=== PATIENT | female | born 1985 | race Caucasian/White ===

== ENCOUNTER 2016-06-27 13:09 | Emergency (ER) | payer MEDICAID ==
[2016-06-27 13:20] VITALS: RESP 16
[2016-06-27 14:17] LABS: COLOR YELLOW; LEUKOCYTE ESTERASE,URINE NEGATIVE (NEGATIVE); NITRITE,URINE NEGATIVE (NEGATIVE); PH,URINE 7.5 (5.0-7.5)
--- NOTE | 2016-06-27 15:09 | UCPHY ---
H & P Time Seen by Provider: 06/27/16 14:57 Patient Type: New HPI/ROS: CHIEF COMPLAINT: Left lower quadrant pain HISTORY OF PRESENT ILLNESS: The patient is a 31 year old female presenting with left lower quadrant pain that has been worsening over the past 3 days. Her pain is moderate to severe. She reports increased pain with moving and standing. The patient was sexually active 2 months ago, not since. She took a test 4 weeks ago that was negative. She had her menstrual cycle 3 weeks ago, but her period has been short for her, it lasted for 3 days instead of 5 days, though at the expected time. She has no associated vomiting or diarrhea. A few days ago the patient felt lightheaded as though she were going to faint, not since, and not with a surge in pain. She denies vaginal discharge. No fever or chest pain. Remoted hx of Chlayydia and Gr I cervical CA, no abd surgery. REVIEW OF SYSTEMS: Constitutional: No fever, no chills. Eyes: No discharge. Respiratory: No cough, shortness of breath, or wheezing. Gastrointestinal: See above. No vaginal bleeding. No shoulder pain Genitourinary: No hematuria or frequency. Past Medical/Surgical History: G10.P6.A3. D&C- 5 years ago. Chlamydia, Cervical cancer Social History: Current everyday smoker. Smoking Status: Current every day smoker Physical Exam: General Appearance: Alert, no distress. Afebrile. Normal phonation. No respiratory distress. Eyes: Pupils equal and round no pallor or injection. No icterus Respiratory: There are no retractions, no duyllnbess Cardiovascular: Regular rate and rhythm, non tachy. Abdomen: Soft, tender to the LLQ. No R or G. Neurological: Ox3. No motor weakness. Sensation intact. Gait nl. Skin: Warm and dry, no rashes. Psychiatric: Normal affect. Constitutional: Initial Vital Signs Temperature (C) 37.1 C 06/27/16 13:15 Heart Rate 69 06/27/16 13:15 Respiratory Rate 16 06/27/16 13:15 Blood Pressure 136/87 H 06/27/16 13:15 O2 Sat (%) 99 06/27/16 13:15 O2 Delivery Mode Room Air Allergies/Adverse Reactions: No Known Allergies Allergy (Unverified 06/27/16 13:20) Home Medications: Medication Instructions Recorded NK [No Known Home Meds] 06/27/16 Medical Decision Making ED Course/Re-evaluation: Urine test is positive. She is [id number] I discussed findings with the patient. I offered transportation via ambulance, she would like to drive herself. I discussed the dangers of tubal , patient understands and declines an ambulance. 3:25 p.m.: I spoke to Dr. Taylor at [facility] ED, he is aware of the patient and expecting her for an US to rule out ectopic . The patient will drive in a private vehicle to the emergency department. Departure - Departure Disposition: Home, Routine, Self-Care Clinical Impression: , Gestation Unknonw Abdominal pain Qualifiers: Abdominal location: left lower quadrant Qualified Code(s): R10.32 - Left lower quadrant pain Condition: Fair Instructions: (ED), Abdominal Pain (ED) Additional Instructions: Go straight to the hospital that she of chosen, [facility]. I have contacted them and they are expecting you. Please note, you were offered an ambulance as a tubal can be a fatal condition. Referrals: [facility],. [Clinic] - As per Instructions Stand Alone Forms: Work Excuse - PQRS PQRS Measurement: NA Report Scribed for: Con Peralta Report Scribed by: Elza Camara Date of Report: 06/27/16 Time of Report: 15:16
--- NOTE | 2016-06-27 15:11 | UCPHY ---
H & P Time Seen by Provider: 06/27/16 14:57 Patient Type: New HPI/ROS: CHIEF COMPLAINT: [ ] HISTORY OF PRESENT ILLNESS: [ ] P: Q: R: S: T: REVIEW OF SYSTEMS: Constitutional: No fever, no chills. Eyes: No discharge [No diplopia] ENT: No sore throat. Cardiovascular: No chest pain, no palpitations. Respiratory: No cough, shortness of breath, or wheezing. Gastrointestinal: No nausea vomiting or diarrhea. No abdominal pain. Genitourinary: No hematuria or frequency. Musculoskeletal: No back pain. Skin: No rashes. Neurological: No headache. 10 point ROS otherwise negative Smoking Status: Current every day smoker Physical Exam: General Appearance: Alert, no distress. Afebrile. Normal phonation. No respiratory distress. Eyes: Pupils equal and round no pallor or injection. No icterus ENT, Mouth: Mucous membranes moist. Pharynx without erythema or exudate. TM Clear. Neck: No adenopathy. Supple. No JVD. Trachea in midline. Respiratory: There are no retractions, lungs are clear to auscultation. Cardiovascular: Regular rate and rhythm. Abdomen: Soft and nontender, no masses, bowel sounds normal. Femoral pulses equal. Neurological: Ox3. No motor weakness. Sensation intact. Gait nl. Skin: Warm and dry, no rashes. Musculoskeletal: No joint swelling. Extremities: No edema. Homans sign negative. No cords. Psychiatric: Normal affect. [Patient is oriented X 3, there is no agitation] Constitutional: Initial Vital Signs Temperature (C) 37.1 C 06/27/16 13:15 Heart Rate 69 06/27/16 13:15 Respiratory Rate 16 06/27/16 13:15 Blood Pressure 136/87 H 06/27/16 13:15 O2 Sat (%) 99 06/27/16 13:15 O2 Delivery Mode Room Air Allergies/Adverse Reactions: No Known Allergies Allergy (Unverified 06/27/16 13:20) Home Medications: Medication Instructions Recorded NK [No Known Home Meds] 06/27/16 Medical Decision Making Differential Diagnosis: Differential diagnosis includes, but is not limited to: Gastroenteritis, dehydration, appendicitis, gastritis, ectopic , ovarian cyst. - Data Points Laboratory Results: 06/27/16 06/27/16 14:05 14:05 Urine Color YELLOW Urine Appearance CLEAR Urine pH 7.5 (5.0-7.5) Ur Specific [place] 1.020 (1.002-1.030) Urine Protein NEGATIVE (NEGATIVE) Urine Ketones NEGATIVE (NEGATIVE) Urine Blood NEGATIVE (NEGATIVE) Urine Nitrate NEGATIVE (NEGATIVE) Urine Bilirubin NEGATIVE (NEGATIVE) Urine Urobilinogen 0.2 EU EU (0.2-1.0) Ur Leukocyte Esterase NEGATIVE (NEGATIVE) Urine Glucose NEGATIVE (NEGATIVE) Urine Test POSITIVE Departure - Departure Disposition: Home, Routine, Self-Care Condition: Good Referrals: NONE *PRIMARY CARE P,. [Primary Care Provider] - As per Instructions
[2016-06-27 16:02] VITALS: BP 121/87; PULSE 54; TEMP 98.4; O2SAT 100
== END 2016-06-27 15:50 | disposition home or self-care (01) ==
LOC: CED 13:09
DX: Z32.01 Encounter for pregnancy test, result positive (principal); R10.32 Left lower quadrant pain; Z72.0 Tobacco use
CPT/HCPCS: 81003-PO; 81025-PO; G0463-PO

== ENCOUNTER 2016-07-22 16:26 | Emergency (ER) | payer MEDICAID ==
[2016-07-22 16:36] VITALS: BP 121/78; PULSE 72; RESP 18; TEMP 98.1; O2SAT 98
[2016-07-22 17:33] LABS: % IMMATURE GRANULYOCYTES 0.1 % (0.0-1.1); ABSOLUTE IMMATURE GRANULOCYTES 0.01 10^3/uL (0.00-0.10); ADD DIFF? NO; ADD MORPH? NO; ADD SCAN? NO; ATYPICAL LYMPHOCYTE FLAG 0 (0-99); FRAGMENT RBC FLAG 0 (0-99); HEMOGLOBIN 14.1 g/dL (12.6-16.3); LEFT SHIFT FLG 0 (0-99); LIPEMIA HEMOLYSIS FLAG 90 (0-99); MEAN CELL HEMOGLOBIN 29.9 pg (27.9-34.1); MEAN CELL HEMOGLOBIN CONCENTR. 34.4 g/dL (32.4-36.7); MEAN PLATELET VOLUME 10.1 fL (8.7-11.7); PLATELET CLUMPS FLAG 0 (0-99); PLATELET COUNT 254 10^3/uL (150-400); RED BLOOD CELL COUNT 4.71 10^6/uL (4.18-5.33); RED CELL DISTRIBUTION WIDTH 13.4 % (11.5-15.2)
[2016-07-22 17:43] LABS: COLOR YELLOW; LEUKOCYTE ESTERASE,URINE NEGATIVE (NEGATIVE); NITRITE,URINE NEGATIVE (NEGATIVE); PH,URINE 6.5 (5.0-7.5)
[2016-07-22 17:46] LABS: ALANINE AMINOTRANSFERASE 24 IU/L (9-52); ALBUMIN 3.9 g/dL (3.5-5.0); ALKALINE PHOSPHATASE 64 IU/L (38-126); ANION GAP 15 mEq/L (8-16); ASPARTATE AMINOTRANSFERASE 20 IU/L (14-46); BILIRUBIN,TOTAL 0.5 mg/dL (0.1-1.4); CARBON DIOXIDE 22 mEq/l (22-31); CHLORIDE 102 mEq/L (97-110); CREATININE 0.6 mg/dL (0.6-1.0); GLOMERULAR FILTRATION RATE > 60; GLUCOSE 49 mg/dL (70-100); POTASSIUM 3.7 mEq/L (3.5-5.2); SODIUM 139 mEq/L (134-144)
--- NOTE | 2016-07-22 17:47 | UCPHY ---
H & P Patient Type: Established Chief Complaint Nursing Narrative: c/o left lower quad abd pain x 3 days. also c /o n/v. seen for same here 3 weeks ago. pt states she's about 4 weeks . denies bleeding or discharge Time Seen by Provider: 07/22/16 17:37 HPI/ROS: Chief Complaint: Abdominal pain HPI: 31-year-old who is 4 weeks by dates presenting with left abdominal pain which started 4 weeks ago. Patient was seen here 4 weeks ago and was diagnosed with at that time. She has since also been seen at the [facility] but hormone levels have been too low for them to see on ultrasound. Patient was scheduled to have an ultrasound at [facility] today but was late for the appointment did not have it done. Pain is gone away for 2 weeks but came back again 2 days ago. No pain at rest. Pain is worse when she stands up or stranger abdomen. No nausea or vomiting. No vaginal bleeding or discharge. No urinary symptoms. ROS: 10 point Review of Systems is negative except as noted in the HPI. PMH: Cervical cancer Social History: Positive for smoking, no alcohol, no recreational drug use Family History: non-contributory Physical Exam: Gen: Awake, Alert, No Distress HEENT: Nose: no rhinorrhea Eyes: PERRLA, EOMI Mouth: Moist mucosa Neck: Supple, no JVD Chest: nontender, lungs clear to auscultation Heart: S1, S2 normal, no murmur Abd: Soft, non-tender, no guarding, no adnexal tenderness Back: no CVA tenderness, no midline tenderness Ext: no edema, non-tender Skin: no rash Neuro: CN II-XII intact, Sensation grossly intact, Strength 5/5 in bilateral upper and lower extremities - Personal History LMP (Females 10-55): Over 28 Days Ago - Medical/Surgical History Hx Asthma: No Hx Chronic Respiratory Disease: No Hx Diabetes: No Hx Cardiac Disease: No Hx Renal Disease: No Hx Cirrhosis: No Hx Alcoholism: No Hx HIV/AIDS: No Hx Splenectomy or Spleen Trauma: No Other PMH: denies - Family History Significant Family History: No pertinent family hx - Social History Smoking Status: Current every day smoker Constitutional: Initial Vital Signs Temperature (C) 36.7 C 07/22/16 16:33 Heart Rate 72 07/22/16 16:33 Respiratory Rate 18 07/22/16 16:33 Blood Pressure 121/78 H 07/22/16 16:33 O2 Sat (%) 98 07/22/16 16:33 O2 Delivery Mode Room Air Allergies/Adverse Reactions: No Known Allergies Allergy (Unverified 06/27/16 13:20) Home Medications: Medication Instructions Recorded NK [No Known Home Meds] 06/27/16 Medical Decision Making - Diagnostics Imaging Results: Imaging Impressions Obstetrics Ultrasound 07/22/16 17:43 Impression: 1. There is a single viable intrauterine gestation with an estimated age of 7 weeks 0 days, and an DONNA of 03/10/2016. 2. There is a nonspecific 2.4 cm oval-shaped structure in the left adnexal region, distinct from the ovary with differential considerations including a "static" loop of bowel, or perhaps a thickened fallopian tube. A concurrent ectopic would be extraordinarily rare and is considered therefore much less likely; however, it still may be worthwhile to consider short-term sonographic reevaluation. Findings and recommendations were discussed with Hermelindo Yi MD at 18:53 , on 07/22/2016. Imaging: Discussed imaging studies w/ banquet server on call Radiologist ED Course/Re-evaluation: Ultrasound results noted. Left adnexal tubular structure without flow is also noted. I have discussed with JULISA Ivan attending at [facility]. He is in agreement with the plan for the patient to follow up in the clinic within a week. He thinks that unlikely that this is heterotopic given there is no flow on ultrasound. - Data Points Laboratory Results: Laboratory Results 07/22/16 17:25 07/22/16 17:25 07/22/16 07/22/16 07/22/16 17:25 17:25 17:16 WBC 8.89 10^3/uL 10^3/uL (3.80-9.50) RBC 4.71 10^6/uL 10^6/uL (4.18-5.33) Hgb 14.1 g/dL g/dL (12.6-16.3) Hct 41.0 % % (38.0-47.0) MCV 87.0 fL fL (81.5-99.8) MCH 29.9 pg pg (27.9-34.1) MCHC 34.4 g/dL g/dL (32.4-36.7) RDW 13.4 % % (11.5-15.2) Plt Count 254 10^3/uL 10^3/uL (150-400) MPV 10.1 fL fL (8.7-11.7) Neut % (Auto) 64.2 % % (39.3-74.2) Lymph % (Auto) 26.5 % % (15.0-45.0) [place] % (Auto) 7.6 % % (4.5-13.0) Eos % (Auto) 1.3 % % (0.6-7.6) Baso % (Auto) 0.3 % % (0.3-1.7) Nucleat RBC Rel Count 0.0 % % (0.0-0.2) Absolute Neuts (auto) 5.69 10^3/uL 10^3/uL (1.70-6.50) Absolute Lymphs (auto) 2.36 10^3/uL 10^3/uL (1.00-3.00) Absolute Monos (auto) 0.68 10^3/uL 10^3/uL (0.30-0.80) Absolute Eos (auto) 0.12 10^3/uL 10^3/uL (0.03-0.40) Absolute Basos (auto) 0.03 10^3/uL 10^3/uL (0.02-0.10) Absolute Nucleated RBC 0.00 10^3/uL 10^3/uL (0-0.01) Immature Gran % 0.1 % % (0.0-1.1) Immature Gran # 0.01 10^3/uL 10^3/uL (0.00-0.10) Sodium 139 mEq/L mEq/L (134-144) Potassium 3.7 mEq/L mEq/L (3.5-5.2) Chloride 102 mEq/L mEq/L (97-110) Carbon Dioxide 22 mEq/l mEq/l (22-31) Anion Gap 15 mEq/L mEq/L (8-16) BUN 10 mg/dL mg/dL (7-23) Creatinine 0.6 mg/dL mg/dL (0.6-1.0) Estimated GFR > 60 Glucose 49 mg/dL L mg/dL (70-100) Calcium 9.0 mg/dL mg/dL (8.5-10.4) Total Bilirubin 0.5 mg/dL mg/dL (0.1-1.4) AST 20 IU/L IU/L (14-46) ALT 24 IU/L IU/L (9-52) Alkaline Phosphatase 64 IU/L IU/L (38-126) Total Protein 7.0 g/dL g/dL (6.3-8.2) Albumin 3.9 g/dL g/dL (3.5-5.0) Beta HCG, Quant 07854.00 mIU/mL H mIU/mL (0-4.83) Urine Color YELLOW Urine Appearance CLEAR Urine pH 6.5 (5.0-7.5) Ur Specific [place] 1.010 (1.002-1.030) Urine Protein NEGATIVE (NEGATIVE) Urine Ketones NEGATIVE (NEGATIVE) Urine Blood NEGATIVE (NEGATIVE) Urine Nitrate NEGATIVE (NEGATIVE) Urine Bilirubin NEGATIVE (NEGATIVE) Urine Urobilinogen 0.2 EU EU (0.2-1.0) Ur Leukocyte Esterase NEGATIVE (NEGATIVE) Ur Culture Indicated? NOT INDICATED (NI) Urine Glucose NEGATIVE (NEGATIVE) Departure - Departure Disposition: Home, Routine, Self-Care Clinical Impression: Condition: Good Instructions: Abdominal Pain in (ED) Additional Instructions: Follow up with [facility] in about a week for re-evaluation. Return emergency depart for increasing pain, vaginal bleeding, nausea, vomiting , or any other concerns. Referrals: NONE *PRIMARY CARE P,. [Primary Care Provider] - As per Instructions - PQRS PQRS Measurement: NA
== END 2016-07-22 19:32 | disposition home or self-care (01) ==
LOC: CED 16:26
DX: O99.89 Other specified diseases and conditions complicating pregnancy, childbirth and the puerperium (principal); R10.32 Left lower quadrant pain; Z3A.01 Less than 8 weeks gestation of pregnancy; R93.8 Abnormal findings on diagnostic imaging of other specified body structures
CPT/HCPCS: 80053-PO; 81003-PO; 84702-PO; 85025-PO; 99215-PO; G0463-PO